=== PATIENT | male | born 1970 | race Caucasian/White ===

== ENCOUNTER 2019-01-06 19:29 | Inpatient (IN) | payer OTHER ==
[~2019-01-06] VITALS: Ht 180.3 cm; Wt 124.5 kg
[2019-01-06 20:14] LABS: BASO % 0.4 % (0.0-2.0); EOS % 0.2 % (0-4.0); GRAN # 7.1 (1.4-6.5); GRAN % 71.3 % (42.2-75.2); HEMATOCRIT 38.6 % (42.0-52.0); HEMOGLOBIN 11.5 g/dl (13.5-18.0); LYMPH # 1.9 (1.2-3.4); LYMPH % 19.3 % (20.0-51.0); MEAN CELL VOLUME 77 fl (80.0-100.0); MEAN CORPUSCULAR HEMOGLOBIN 23 pg (27.0-31.0); MEAN CORPUSCULAR HGB CONC 30 g/dl (33.0-37.0); MEAN PLATELET VOLUME 10.2 fl (7.4-10.4); MONO # 0.8 (0.1-0.6); MONO % 8.5 % (1.7-9.3); PLATELET COUNT 297 K/mm3 (130-400); RED BLOOD COUNT 5.03 M/mm3 (4.20-5.60); REDCELL DISTRIBUTION WIDTH-CV 19.3 % (11.5-14.5)
[2019-01-06 20:19] LABS: ALBUMIN 3.6 gm/dL (3.5-5.0); BILIRUBIN,TOTAL 0.8 mg/dL (0.0-1.0); CALCIUM 8.6 mg/dL (8.4-10.2); CREATININE, serum 1.14 (0.66-1.25); POTASSIUM 4.7 mmol/L (3.4-5.0); TOTAL PROTEIN 6.5 gm/dL (6.4-8.2)
[2019-01-06 20:23] LABS: INR 1.1 (0.8-3.0); PROTHROMBIN TIME 13.3 SECONDS (9.7-12.8)
[2019-01-06 20:33] LABS: TROPONIN-I 0.049 ng/mL (0.000-0.035)
[2019-01-06] MEDS ORDERED: NORVASC 10MG10 MG PO (22:39)
[2019-01-06] MEDS ORDERED: BENADRYL25 M2 PO (22:41)
[2019-01-06] MEDS ORDERED: LOTENSIN 1010 MG/TAB PO (22:41)
[2019-01-06] MEDS ORDERED: PAXIL 20MG20 MG PO (22:42)
[2019-01-06] MEDS ORDERED: KLONOPIN2 MG PO (22:42)
[2019-01-06] MEDS ORDERED: GLUCOPHAGE1000 MG PO (22:42)
--- NOTE | 2019-01-06 23:15 | NUR ---
Report received by Georgie Carroll RN in ED.
[2019-01-06 23:22] VITALS: BP 122/109; BP 125/82; PULSE 120; TEMP 97.8
--- NOTE | 2019-01-06 23:30 | NUR ---
Pt arrived to ICU01 accompanied by ED staff member X1, personal belongings and X1 visitor. Pt transfered from stretcher independently with a steady gait to bed, onto standing scale and then to recliner per pt request. Assessment completed. Pt has mild diaphoresis visible to upper chest and forehead, reports SOA although denies need for O2 at this time. Declines use of a urinal and reports preference to use the toilet.
[2019-01-06 23:33] VITALS: O2SAT 90
[2019-01-06 23:41] VITALS: O2SAT 94
[2019-01-06 23:43] VITALS: O2SAT 95
[2019-01-06 23:44] VITALS: O2SAT 88
[2019-01-07] VITALS (697 sets, daily range): BP systolic 86–163; BP diastolic 52–93; PULSE 93–123; TEMP 97.9–98.9; O2SAT 85–100
--- NOTE | 2019-01-07 01:40 | NUR ---
Aiden Christianson from [facility] called. Will fax over ED report information although wanted to verbalize times medications administered due to the way the times are getting cut off with forms printed. 1L NS bolus @ 0820, 325 EC Aspirin @ 0803, 130mg Lovenox @ 0913, 20mg IV Lasix @0912, 50mg PO Metoprolol Suc @ 0820, Cardizem push 32.075mg IV @ 0827 with Cardizem gtt started. Paperwork received shortly following conversation with staff member.
--- NOTE | 2019-01-07 02:25 | NUR ---
Due to pts stats staying <90% consistently for the last couple mins 3L O2 was applied via NC to sleeping pt. RT notified. Sats increased following application.
[2019-01-07 05:18] LABS: BASO # 0.1 (0.0-0.2); BASO % 0.5 % (0.0-2.0); EOS % 0.1 % (0-4.0); GRAN # 7.7 (1.4-6.5); HEMATOCRIT 40.4 % (42.0-52.0); HEMOGLOBIN 11.7 g/dl (13.5-18.0); LYMPH # 2.4 (1.2-3.4); LYMPH % 21.4 % (20.0-51.0); MEAN CELL VOLUME 79 fl (80.0-100.0); MEAN CORPUSCULAR HEMOGLOBIN 23 pg (27.0-31.0); MEAN CORPUSCULAR HGB CONC 29 g/dl (33.0-37.0); MEAN PLATELET VOLUME 10.3 fl (7.4-10.4); MONO # 0.8 (0.1-0.6); MONO % 7.6 % (1.7-9.3); PLATELET COUNT 314 K/mm3 (130-400); RED BLOOD COUNT 5.14 M/mm3 (4.20-5.60); REDCELL DISTRIBUTION WIDTH-CV 19.4 % (11.5-14.5); RETIC % 1.9 % (0.5-3.52)
[2019-01-07 05:31] LABS: CALCIUM 8.4 mg/dL (8.4-10.2); CREATININE, serum 1.17 (0.66-1.25); POTASSIUM 4.9 mmol/L (3.4-5.0)
[2019-01-07 05:40] LABS: IRON,SERUM 21 ug/dL (35-150)
[2019-01-07 05:45] LABS: TROPONIN-I 0.046 ng/mL (0.000-0.035)
[2019-01-07 05:49] LABS: TOTAL IRON BINDING CAPACITY 409 ug/dL (261-462)
[2019-01-07 05:59] LABS: TSH w REFLEX 1.9 uIU/mL (0.465-4.680)
[2019-01-07 06:14] LABS: FERRITIN 17 ng/mL (18-464)
--- NOTE | 2019-01-07 07:10 | NUR ---
Pts girlfriend called for an update. Was not able to provide 4 digit passcode so pt was approached and gave verbal okay to provide with an update. Questions asked and answered- BP has been WNL. Heart rate has been controlled although still in an irregular rhythm. Will plan on MARC with cardioversion to reset heart at bedside following cardiology assessment. Will be in after work around 2pm.
--- NOTE | 2019-01-07 07:20 | NUR ---
Bedside report provided to Tanna Fragoso RN. Pt up to the toilet and back to bed. Independent with ambulation in the room with refusal to use the urinal at bedside.
--- NOTE | 2019-01-07 07:23 | NUR ---
Bedside report recieved from XOCHILT Paulino. Patient ambulates to bathroom independently with steady gait noted. 2LO2 in place per NC. Peripheral IV uncomplicated and locked. Patient denies needs at this time. Care assumed.
--- NOTE | 2019-01-07 07:45 | NUR ---
Bedside ECHO completed at this time by technologist.
--- NOTE | 2019-01-07 08:22 | NUR ---
Dr. West rounds on patient at this time. Orders as entered CPOE.
--- NOTE | 2019-01-07 08:47 | NUR ---
Dr. Flynn notified of consult
--- NOTE | 2019-01-07 09:04 | NUR ---
Dr. Cheney called and message left to notify of consult secondary to positive occult stool, patient report of GIB at home, and hgb of 11.2. Call back number provided.
--- NOTE | 2019-01-07 09:09 | NUR ---
Dr. Flynn rounds at this time. Orders as entered CPOE.
--- NOTE | 2019-01-07 10:10 | NUR ---
Patient expresses baseline anxiety exacerbated by ICU stay. He questions whether he will be allowed to go home tonight and follow up from an outpatient status for furhter exams. Support is provided and he is encouraged to complete schedule lexiscan and discuss results of that and POC with MD following test. He is agreeable to this. Care ongoing.
--- NOTE | 2019-01-07 10:22 | NUR ---
Patient departs with nuclear med. costume technician for ordered lexiscan.
--- NOTE | 2019-01-07 11:11 | NUR ---
Initial visit; Patient thanked Rack Carrier for looking in on him and offering God's blessings. Patient seemed to appreciate Rack Carrier's encouragement.
--- NOTE | 2019-01-07 11:43 | NUR ---
Patient returns to ICU via WC following lexiscan. Care resumed.
--- NOTE | 2019-01-07 12:12 | NUR ---
Patient provided and reminded multiple times to void using provided urinal for accurate output. Continually forgets and so is provided hat in toilet.
--- NOTE | 2019-01-07 13:10 | NUR ---
Dr. Cheney rounds on patient at this time. VORB for EGD tomorrow with AA. Care ongoing.
--- NOTE | 2019-01-07 13:43 | NUR ---
AA paged and call back number provided regarding EGD 01/08/[phone].
--- NOTE | 2019-01-07 15:11 | NUR ---
SW met with the patient to discuss discharge plan. The patient lives in [place] with his girlfriend, Jaclyn. He reports independence with ADLs and does not use any DME. The patient's PCP is Dr. Brijesh Garcia and he receives his medications at the [facility] in [place]. He reports no difficulties obtaining his meds. The patient is self pay. SW consulted financial counselor, Holly. The patient does not have advanced directives, but he was interested in obtaining a form for DPOA-HC. PATRICA provided. The patient plans to return home with his girlfriend upon discharge. No additional needs at this time.
--- NOTE | 2019-01-07 19:00 | NUR ---
Bedside report received from Tanna Fragoso RN. Pt resting with eyes closed prone in bed. Personal belongings with in reach. Gown not attached although drapped over pts lower extremities.
--- NOTE | 2019-01-07 22:00 | NUR ---
Pt resting in bed with this nurse entered room to administer medications, complete assessment and discuss education CHF notebook and sign consent for procedure schedule for 01/08/19. Pt discussed stressors in personal life including kids, pt has 2 adopted kids and how pts exterior looks hard although there a soft heart.
[2019-01-08] VITALS (546 sets, daily range): BP systolic 86–109; BP diastolic 58–87; PULSE 96–120; TEMP 98.1–98.8; O2SAT 77–100
[2019-01-08 05:57] LABS: BASO % 0.4 % (0.0-2.0); EOS # 0.1 (0.0-0.7); EOS % 0.7 % (0-4.0); GRAN # 4.9 (1.4-6.5); GRAN % 68.5 % (42.2-75.2); HEMOGLOBIN 10.4 g/dl (13.5-18.0); LYMPH # 1.4 (1.2-3.4); LYMPH % 20.3 % (20.0-51.0); MEAN CELL VOLUME 78 fl (80.0-100.0); MEAN CORPUSCULAR HEMOGLOBIN 23 pg (27.0-31.0); MEAN CORPUSCULAR HGB CONC 29 g/dl (33.0-37.0); MEAN PLATELET VOLUME 10.2 fl (7.4-10.4); MONO # 0.7 (0.1-0.6); MONO % 9.7 % (1.7-9.3); PLATELET COUNT 255 K/mm3 (130-400); RED BLOOD COUNT 4.56 M/mm3 (4.20-5.60); REDCELL DISTRIBUTION WIDTH-CV 18.9 % (11.5-14.5)
--- NOTE | 2019-01-08 06:00 | NUR ---
Pt noted to have HR that was observed up into the 150's and when looked in upon pt was using the toilet. HR decreased to the 110's promptly following pt returning to bed. Pt has been encouraged to use the urinal although has voiced preference to use the toilet.
[2019-01-08 06:05] LABS: HEMATOCRIT 35.6 % (42.0-52.0)
[2019-01-08 06:06] LABS: CALCIUM 7.9 mg/dL (8.4-10.2); CREATININE, serum 1.1 (0.66-1.25); POTASSIUM 4.2 mmol/L (3.4-5.0)
--- NOTE | 2019-01-08 07:10 | NUR ---
Bedside report provided to Tanna Wilson RN. Pt resting in bed with eyes intermittently open.
--- NOTE | 2019-01-08 07:15 | NUR ---
Bedside report received from XOCHILT Paulino.
--- NOTE | 2019-01-08 08:30 | NUR ---
Assessment completed. Pt sleeping in bed, easily arousable. Denies any pain. HR Afib on monitor. Discussed plan of care r/t NPO for EGD procedure today. Pt verbalized understanding. Call light in reach.
--- NOTE | 2019-01-08 13:04 | NUR ---
Updated Sabina Coates RN of pt's status. Pt left unit via ICU bed to Endo procedure with XOCHILT Coates.
--- NOTE | 2019-01-08 13:45 | NUR ---
Report received from XOCHILT Coates. Pt arrived to ICU room 1 from Endo procedure via bed. Pt A/0x3. Denies any nausea or pain. Remains on Amiodarone gtt. HR Afib on monitor. Call light in reach.
--- NOTE | 2019-01-08 16:30 | NUR ---
Pt finished eating. Family at bedside. Updated on pt status r/t EGD results and Amiodarone gtt. Answered all questions to pt and pt's family satisfaction. Pt denies any pain. Pt HR remains Afib 100-120s with Amiodarone gtt.
--- NOTE | 2019-01-08 19:15 | NUR ---
Bedside report received from Tanna Fragoso RN. Pt sitting in bed with girlfriend in chair next to pt towards the door. Pt discussed difference between hospital Hr monitor vs phone hero and had noticed at a prior time HR was in the 60's then for a moment had displayed a rate in the 100's. Questions encouraged and answered when presented to staff.
--- NOTE | 2019-01-08 19:30 | NUR ---
bedside report given to XOCHILT Paulino
[2019-01-09] VITALS (493 sets, daily range): BP systolic 110–121; BP diastolic 76–97; PULSE 93–109; TEMP 98.2–98.5; O2SAT 76–100
--- NOTE | 2019-01-09 07:10 | NUR ---
Bedside report provided to Marlon LEMON.
--- NOTE | 2019-01-09 08:00 | NUR ---
Shift assessment complete at this time. Plan of care reviewed at bedside with patient. Additional time taken to address any other needs or concerns. Vitals stable at this time. Pt still remains in a-fib on amiodarone gtt. Denies pain or any other discomfort. Bed in low position, call light within reach, will continue to monitor.
--- NOTE | 2019-01-09 11:44 | NUR ---
Financial counselor, Uli, plans to meet with the patient today and complete a Medicaid hero. The patient had already applied for social security. SW to continue to follow.
--- NOTE | 2019-01-09 12:00 | NUR ---
Pt resting comfortably in bed. Denies pain or any other discomfort. Vitals stable at this time. HR more stable and not quite at tachycardic after stopping amiodarone and starting Pt on digoxin. Bed in low position, call light within reach. Will continue to monitor.
[2019-01-09] MEDS ORDERED: FERROUS SU325 MG/TAB PO (15:11)
[2019-01-09] MEDS ORDERED: LANOXIN 0.25M0.25 MG PO (15:12)
[2019-01-09] MEDS ORDERED: COREG 3.123.125 MG/T PO (15:12)
[2019-01-09] MEDS ORDERED: LASIX 20MG TABL20 MG PO (15:13)
[2019-01-09] MEDS ORDERED: TYLENOL 325MG325 MG PO (15:13)
[2019-01-09] MEDS ORDERED: PROTONIX 40MG T40 MG PO (15:14)
[2019-01-09] MEDS ORDERED: PRAVACHOL 20MG20 MG PO (15:15)
== END 2019-01-09 16:05 | disposition home or self-care (01) | DRG 308 ==
LOC: COL.ER 19:29 → ICU 21:56
PROVIDERS: Emergency Medicine; Internal Medicine Gastroenterology; Nurse Practitioner; Physician Assistant; ADMIT Internal Medicine
PROC: 0DB68ZX Excision of Stomach, Via Natural or Artificial Opening Endoscopic, Diagnostic (ICD-10-PCS; principal; 2019-01-08 13:30)
DX: I48.0 Paroxysmal atrial fibrillation (principal); K25.4 Chronic or unspecified gastric ulcer with hemorrhage; I50.20 Unspecified systolic (congestive) heart failure; J81.1 Chronic pulmonary edema; I11.0 Hypertensive heart disease with heart failure; E11.9 Type 2 diabetes mellitus without complications; D50.9 Iron deficiency anemia, unspecified; K52.9 Noninfective gastroenteritis and colitis, unspecified; I95.9 Hypotension, unspecified; I08.0 Rheumatic disorders of both mitral and aortic valves; F41.9 Anxiety disorder, unspecified; F32.9 Major depressive disorder, single episode, unspecified; G47.30 Sleep apnea, unspecified; R78.89 Finding of other specified substances, not normally found in blood; K25.7 Chronic gastric ulcer without hemorrhage or perforation; Z88.5 Allergy status to narcotic agent; Z79.84 Long term (current) use of oral hypoglycemic drugs
CPT/HCPCS: 99222; 99223-AI; 99233-AI; 99239; A4216; A9500; C9113; J0282; J0456; J0696; J1160; J1650; J1940; J2060; J2704; J2785; J7030; J7050; J7060; Q9967

== ENCOUNTER 2019-03-17 13:20 | Inpatient (IN) | payer MEDICAID ==
[~2019-03-17] VITALS: Ht 180.3 cm; Wt 127.3 kg
[~2019-03-17 13:20] MED LIST: BENADRYL25 M2 PO; COREG 3.123.125 MG/T PO; FERROUS SU325 MG/TAB PO; GLUCOPHAGE1000 MG PO; KLONOPIN2 MG PO; LANOXIN 0.25M0.25 MG PO; LASIX 20MG TABL20 MG PO; LOTENSIN 1010 MG/TAB PO; NORVASC 10MG10 MG PO; PAXIL 20MG20 MG PO; PRAVACHOL 20MG20 MG PO; PROTONIX 40MG T40 MG PO; TYLENOL 325MG325 MG PO
[2019-03-31] VITALS (7 sets, daily range): BP systolic 109–152; BP diastolic 74–125; PULSE 51–109; TEMP 98–98.9
[2019-03-31 08:31] LABS: BASO # 0.1 (0.0-0.2); BASO % 0.9 % (0.0-2.0); EOS # 0.3 (0.0-0.7); EOS % 4.5 % (0-4.0); GRAN % 45.8 % (42.2-75.2); HEMATOCRIT 43.5 % (42.0-52.0); HEMOGLOBIN 13.9 g/dl (13.5-18.0); LYMPH # 2.5 (1.2-3.4); LYMPH % 38.2 % (20.0-51.0); MEAN CELL VOLUME 84 fl (80.0-100.0); MEAN CORPUSCULAR HEMOGLOBIN 27 pg (27.0-31.0); MEAN CORPUSCULAR HGB CONC 32 g/dl (33.0-37.0); MEAN PLATELET VOLUME 9.8 fl (7.4-10.4); MONO # 0.7 (0.1-0.6); MONO % 10.4 % (1.7-9.3); PLATELET COUNT 203 K/mm3 (130-400); RED BLOOD COUNT 5.17 M/mm3 (4.20-5.60); REDCELL DISTRIBUTION WIDTH-CV 22.5 % (11.5-14.5)
[2019-03-31 08:39] LABS: ALBUMIN 4.2 gm/dL (3.5-5.0); BILIRUBIN,TOTAL 0.4 mg/dL (0.0-1.0); CREATININE, serum 0.95 (0.66-1.25); MAGNESIUM 1.7 mg/dL (1.6-2.3); POTASSIUM 3.9 mmol/L (3.4-5.0)
[2019-03-31 08:41] LABS: PROTHROMBIN TIME 48.6 SECONDS (9.7-12.8)
--- NOTE | 2019-03-31 09:19 | NUR ---
SW met with the patient to discuss discharge plan. The patient lives in [place] with his , Jaclyn Jiang (ph#[phone]). He states that they recently got . He reports independence with ADLs and does not have any DME. The patient's PCP is Dr. Louis Goins and he receives his medications at the [facility] in [place]. He reports no difficulties obtaining his meds. The patient does not have advanced directives and he was not interested in completing one at this time. The patient plans to return home with his upon discharge. No additional needs at this time.
[2019-03-31] MEDS ORDERED: COREG 6.256.25 MG/TA PO (09:41)
[2019-03-31] MEDS ORDERED: COUMADIN 5MG5 MG/TAB PO (09:44)
[2019-03-31] MEDS ORDERED: MULTI VITAMINS1 TAB PO (09:44)
--- NOTE | 2019-03-31 10:30 | NUR ---
Pt arrived to room 307, he is ambulatory. A/O x3. His breathing is even and unlabored on RA. Pt denies any pain. Occasional palpitations present, pt's HR irregular. New medication reviewed with patient as well as POC. 22G started to R hand. Tele leads in place. Pt has no needs at this time. Call light within reach. Will continue to monitor.
--- NOTE | 2019-03-31 18:38 | NUR ---
Pt had uneventful day, denied any concerns or pain. Continues to be in Afib. Pt resting in his room, has no needs at this time. Call light within reach.
[2019-04-01 03:55] VITALS: BP 97/81; PULSE 55; TEMP 98
[2019-04-01 07:47] LABS: BASO # 0.1 (0.0-0.2); BASO % 0.8 % (0.0-2.0); EOS # 0.3 (0.0-0.7); EOS % 5.2 % (0-4.0); GRAN % 47.8 % (42.2-75.2); HEMATOCRIT 45.5 % (42.0-52.0); HEMOGLOBIN 14.5 g/dl (13.5-18.0); LYMPH # 2.1 (1.2-3.4); LYMPH % 32.9 % (20.0-51.0); MEAN CELL VOLUME 85 fl (80.0-100.0); MEAN CORPUSCULAR HEMOGLOBIN 27 pg (27.0-31.0); MEAN CORPUSCULAR HGB CONC 32 g/dl (33.0-37.0); MEAN PLATELET VOLUME 10.9 fl (7.4-10.4); MONO # 0.8 (0.1-0.6); MONO % 13.1 % (1.7-9.3); PLATELET COUNT 214 K/mm3 (130-400); RED BLOOD COUNT 5.34 M/mm3 (4.20-5.60); REDCELL DISTRIBUTION WIDTH-CV 23.5 % (11.5-14.5)
[2019-04-01 07:48] LABS: INR 2.7 (0.8-3.0)
[2019-04-01 07:51] VITALS: BP 106/77; PULSE 61; TEMP 97.5
[2019-04-01 07:57] LABS: CALCIUM 8.9 mg/dL (8.4-10.2); CREATININE, serum 0.92 (0.66-1.25); POTASSIUM 3.9 mmol/L (3.4-5.0)
[2019-04-01 10:35] VITALS: BP 118/80; PULSE 63; TEMP 97.9
--- NOTE | 2019-04-01 12:06 | NUR ---
Initial visit; Patient thanked Inventory Coordinator for looking in on him and offering spiritual care.
[2019-04-01 16:23] VITALS: BP 112/68; PULSE 88; TEMP 98.9
--- NOTE | 2019-04-01 19:18 | NUR ---
PT HAD UNEVENTFUL DAY. NO C/O CHEST PAIN. PT REMAINS IN AFIB. TO HAVE CARDIOVERSION TOMORROW. NO ISSUUES OR CONCERNS VOICED THIS SHIFT.
[2019-04-01 20:03] VITALS: BP 116/80; PULSE 80; TEMP 98.4
[2019-04-02 00:18] VITALS: BP 110/70; PULSE 53; TEMP 98.8
[2019-04-02 04:19] VITALS: BP 118/85; PULSE 65; TEMP 98.8
[2019-04-02 06:17] LABS: BASO % 0.7 % (0.0-2.0); EOS # 0.3 (0.0-0.7); EOS % 5.5 % (0-4.0); GRAN # 2.9 (1.4-6.5); GRAN % 48.4 % (42.2-75.2); HEMATOCRIT 43.4 % (42.0-52.0); HEMOGLOBIN 13.7 g/dl (13.5-18.0); LYMPH # 2.1 (1.2-3.4); LYMPH % 34.6 % (20.0-51.0); MEAN CELL VOLUME 86 fl (80.0-100.0); MEAN CORPUSCULAR HEMOGLOBIN 27 pg (27.0-31.0); MEAN CORPUSCULAR HGB CONC 32 g/dl (33.0-37.0); MEAN PLATELET VOLUME 10.6 fl (7.4-10.4); MONO # 0.6 (0.1-0.6); MONO % 10.6 % (1.7-9.3); PLATELET COUNT 147 K/mm3 (130-400); RED BLOOD COUNT 5.05 M/mm3 (4.20-5.60)
[2019-04-02 06:21] LABS: CALCIUM 8.5 mg/dL (8.4-10.2); CREATININE, serum 0.91 (0.66-1.25); POTASSIUM 3.6 mmol/L (3.4-5.0)
[2019-04-02 08:30] VITALS: BP 124/76; PULSE 84; TEMP 98
--- NOTE | 2019-04-02 08:42 | NUR ---
Pt assessment complete and charted. Pt laying in bed resting, doesn't appear in distress, A&O. Pt denies chest pain, dizziness, SOB, N/V. Pt on room air. RH INT IV flushes w/ no complications. pt voices no concerns at this time. Awaiting possible cardioversion today. Call light within reach.
[2019-04-02 10:01] VITALS: BP 143/88; PULSE 85
--- NOTE | 2019-04-02 10:02 | NUR ---
PT HERE FOR ELECTIVE CARDIOVERSION AFTER SOTALOL LOAD. [facility] FOR SEDATION WITH [facility]ITOR [facility]EST[facility] POST PROCEDURE. SEE MERGE REPORT FOR INTRA/POST SEDATION ASSESSMENTS.
[2019-04-02] MEDS ORDERED: BETAPACE 80MG80 MG PO (10:20)
[2019-04-02] MEDS ORDERED: COREG 3.123.125 MG/T PO (10:27)
[2019-04-02 16:04] VITALS: BP 110/81; PULSE 77; TEMP 98.2
--- NOTE | 2019-04-02 17:02 | NUR ---
Pt had cardioversion this morning. Tolerated well, converted one time. pt VSS after procedure and stated he had no pain and the pressure and tightness he had felt prior was no longer there. pt tolerated PO well after procedure. Pt discharged. All discharge instructions discussed and reviewed. All questions answered. LWR INT discontinued w/ catheter tip intact and no complications. Escorted out by this nurse.
== END 2019-04-02 17:04 | disposition home or self-care (01) | DRG 309 ==
LOC: MEDICAL 03-31 07:53
PROVIDERS: Internal Medicine Cardiovascular Disease; ADMIT Internal Medicine Cardiovascular Disease
PROC: 5A2204Z Restoration of Cardiac Rhythm, Single (ICD-10-PCS; principal; 2019-04-02)
DX: I48.0 Paroxysmal atrial fibrillation (principal); I50.22 Chronic systolic (congestive) heart failure; I42.9 Cardiomyopathy, unspecified; I34.0 Nonrheumatic mitral (valve) insufficiency; I11.0 Hypertensive heart disease with heart failure; E78.5 Hyperlipidemia, unspecified; I25.10 Atherosclerotic heart disease of native coronary artery without angina pectoris; G47.33 Obstructive sleep apnea (adult) (pediatric); D64.9 Anemia, unspecified; I27.20 Pulmonary hypertension, unspecified; E11.9 Type 2 diabetes mellitus without complications; F32.9 Major depressive disorder, single episode, unspecified; F41.9 Anxiety disorder, unspecified; Z88.5 Allergy status to narcotic agent; Z79.84 Long term (current) use of oral hypoglycemic drugs
CPT/HCPCS: J2704; J3475

== ENCOUNTER 2019-04-09 08:59 | Day surgery (SDC) | payer MEDICAID ==
[~2019-04-09] VITALS: Ht 180.3 cm; Wt 124.2 kg
[~2019-04-09 08:59] MED LIST changes: +BETAPACE 80MG80 MG PO; +COREG 6.256.25 MG/TA PO; +COUMADIN 5MG5 MG/TAB PO; +MULTI VITAMINS1 TAB PO
[2019-04-09] MEDS ORDERED: COREG 6.256.25 MG/TA PO (09:11)
[2019-04-09] MEDS ORDERED: LASIX 20MG TABL20 MG PO (09:12)
[2019-04-09] MEDS ORDERED: PROTONIX 40MG T40 MG PO (09:13)
[2019-04-09] MEDS ORDERED: PRAVACHOL 20MG20 MG PO (09:14)
[2019-04-09] MEDS ORDERED: BETAPACE 120MG120 MG PO (09:14)
[2019-04-09 09:49] VITALS: BP 109/94; PULSE 57; TEMP 98.6
[2019-04-09 10:07] LABS: HEMOGLOBIN 13.1 g/dl (13.5-18.0); MEAN CELL VOLUME 88 fl (80.0-100.0); MEAN CORPUSCULAR HEMOGLOBIN 27 pg (27.0-31.0); MEAN CORPUSCULAR HGB CONC 31 g/dl (33.0-37.0); MEAN PLATELET VOLUME 9.8 fl (7.4-10.4); PLATELET COUNT 210 K/mm3 (130-400); REDCELL DISTRIBUTION WIDTH-CV 22.3 % (11.5-14.5)
[2019-04-09 10:14] LABS: INR 2.7 (0.8-3.0)
[2019-04-09 10:22] LABS: CALCIUM 8.5 mg/dL (8.4-10.2); CREATININE, serum 0.93 (0.66-1.25); POTASSIUM 3.9 mmol/L (3.4-5.0)
[2019-04-09 10:50] LABS: THYROID STIMULATING HORMONE 0.984 uIU/mL (0.465-4.680)
[2019-04-09] MEDS ORDERED: BETAPACE 80MG80 MG PO (11:26)
[2019-04-09 11:30] VITALS: BP 109/77; PULSE 66; TEMP 98.6
--- NOTE | 2019-04-09 11:30 | NUR ---
Pt resting in bed. Denies pain and needs at this time. HR 66 SR
[2019-04-09 11:45] VITALS: BP 121/73; PULSE 63; TEMP 98.6
[2019-04-09 12:00] VITALS: BP 110/80; PULSE 69; TEMP 98.6
[2019-04-09 12:15] VITALS: BP 109/77; PULSE 68; TEMP 98.6
[2019-04-09 12:43] VITALS: BP 158/82; PULSE 67; TEMP 98.6
--- NOTE | 2019-04-09 12:44 | NUR ---
INT discontinued intact. VSS. Post ECG complete.
--- NOTE | 2019-04-09 12:50 | NUR ---
Discharge instructions given. Transferred to private car by geoff
== END 2019-04-09 13:01 | disposition home or self-care (01) ==
LOC: COL.CAR 08:59
PROVIDERS: Internal Medicine Cardiovascular Disease
DX: I48.91 Unspecified atrial fibrillation (principal); I42.0 Dilated cardiomyopathy; E78.2 Mixed hyperlipidemia; I27.20 Pulmonary hypertension, unspecified; I11.0 Hypertensive heart disease with heart failure; I50.32 Chronic diastolic (congestive) heart failure; I34.0 Nonrheumatic mitral (valve) insufficiency; G47.33 Obstructive sleep apnea (adult) (pediatric); E11.9 Type 2 diabetes mellitus without complications; F41.9 Anxiety disorder, unspecified; F32.9 Major depressive disorder, single episode, unspecified; Z87.19 Personal history of other diseases of the digestive system; Z79.84 Long term (current) use of oral hypoglycemic drugs; Z79.01 Long term (current) use of anticoagulants; Z82.49 Family history of ischemic heart disease and other diseases of the circulatory system; Z82.3 Family history of stroke; Z88.6 Allergy status to analgesic agent; Z88.8 Allergy status to other drugs, medicaments and biological substances; Z88.4 Allergy status to anesthetic agent
CPT/HCPCS: J2704

== ENCOUNTER 2019-07-23 08:28 | Day surgery (SDC) | payer MEDICAID ==
[~2019-07-23] VITALS: Ht 180.3 cm; Wt 121.2 kg
[~2019-07-23 08:28] MED LIST changes: +BETAPACE 120MG120 MG PO
[2019-07-23 09:30] VITALS: BP 107/82; PULSE 59; TEMP 97.7
[2019-07-23] MEDS ORDERED: CARAFATE 1GM1 G PO (09:36)
[2019-07-23] MEDS ORDERED: ALDACTONE50 MG PO (09:37)
[2019-07-23] MEDS ORDERED: ELIQUIS 5MG PO (09:37)
[2019-07-23] MEDS ORDERED: TOPROL XL100 MG PO (09:38)
[2019-07-23] MEDS ORDERED: PACERONE200 MG PO (09:38)
[2019-07-23 11:45] VITALS: BP 96/75; PULSE 59; TEMP 97.9
--- NOTE | 2019-07-23 11:45 | NUR ---
Patient brought back to bay 5 via cart. Ambulated to chair without difficulty. Placed on monitors, vital signs stable. IV to left hand infusing. at bedside. Report recieved from PAULINE RN. Pt denies pain or nausea. Dr. Everett at bedside to discuss results. Pt requests soda and muffin. Will continue to monitor.
[2019-07-23 12:00] VITALS: BP 108/74; PULSE 61
--- NOTE | 2019-07-23 12:00 | NUR ---
Patient tolerating food and drink without difficulty. States he is feeling well. Vital signs stable. Will continue to monitor.
[2019-07-23 12:15] VITALS: BP 110/77; PULSE 60
--- NOTE | 2019-07-23 12:15 | NUR ---
Patient states he is ready to go home. IV pulled without difficulty. Discharge instructions reviewed with patient and . All questions answered. Pt to get dressed at this time.
--- NOTE | 2019-07-23 12:38 | NUR ---
Patient brought down to lobby via wheel chair. To be driven home by .
== END 2019-07-23 12:38 | disposition home or self-care (01) ==
LOC: SDCO 08:28
DX: K57.30 Diverticulosis of large intestine without perforation or abscess without bleeding (principal); K64.0 First degree hemorrhoids; K44.9 Diaphragmatic hernia without obstruction or gangrene; I48.91 Unspecified atrial fibrillation; M19.90 Unspecified osteoarthritis, unspecified site; F32.9 Major depressive disorder, single episode, unspecified; F41.0 Panic disorder [episodic paroxysmal anxiety]; R53.82 Chronic fatigue, unspecified; K29.80 Duodenitis without bleeding; K29.70 Gastritis, unspecified, without bleeding; I49.9 Cardiac arrhythmia, unspecified; I11.0 Hypertensive heart disease with heart failure; I50.9 Heart failure, unspecified; G47.33 Obstructive sleep apnea (adult) (pediatric); I27.20 Pulmonary hypertension, unspecified; J90 Pleural effusion, not elsewhere classified; J18.9 Pneumonia, unspecified organism; E11.9 Type 2 diabetes mellitus without complications; F41.9 Anxiety disorder, unspecified; E66.9 Obesity, unspecified; Z68.36 Body mass index [BMI] 36.0-36.9, adult; Z79.84 Long term (current) use of oral hypoglycemic drugs; Z95.0 Presence of cardiac pacemaker
CPT/HCPCS: J2370; J2704

== ENCOUNTER 2020-01-18 15:50 | Emergency (ER) | payer MEDICAID ==
[~2020-01-18] VITALS: Ht 180.3 cm; Wt 126.8 kg
[~2020-01-18 15:50] MED LIST changes: +ALDACTONE50 MG PO; +CARAFATE 1GM1 G PO; +ELIQUIS 5MG PO; +PACERONE200 MG PO; +TOPROL XL100 MG PO
[2020-01-18 16:35] VITALS: BP 152/106; TEMP 98.1
[2020-01-18 17:12] LABS: COLLECTION METHOD CLEAN CATCH
[2020-01-18 17:35] LABS: PH 6 (5-8); SQUAMOUS EPITHELIAL None Seen /hpf; URINE APPEARANCE Clear; URINE BACTERIA None Seen /hpf; URINE BILIRUBIN Negative (NEGATIVE); URINE BLOOD Negative (NEGATIVE); URINE COLOR Straw; URINE GLUCOSE Negative (NEGATIVE); URINE KETONE Negative (NEGATIVE); URINE LEUKOCYTE ESTERASE Negative (NEGATIVE); URINE NITRATE Negative (NEGATIVE); URINE PROTEIN(semi-quant) Negative (NEGATIVE); URINE RBC 0-2 /hpf; URINE UROBILINOGEN Negative (NEGATIVE)
[2020-01-18 17:45] LABS: BASO # 0.1 (0.0-0.2); BASO % 0.8 % (0.0-2.0); EOS # 0.2 (0.0-0.7); EOS % 2.3 % (0-4.0); GRAN # 6.1 (1.4-6.5); GRAN % 61.7 % (42.2-75.2); HEMOGLOBIN 16.2 g/dl (13.5-18.0); LYMPH # 2.5 (1.2-3.4); LYMPH % 25.3 % (20.0-51.0); MEAN CELL VOLUME 91 fl (80.0-100.0); MEAN CORPUSCULAR HEMOGLOBIN 30 pg (27.0-31.0); MEAN CORPUSCULAR HGB CONC 33 g/dl (33.0-37.0); MEAN PLATELET VOLUME 9.9 fl (7.4-10.4); MONO # 0.9 (0.1-0.6); MONO % 9.6 % (1.7-9.3); PLATELET COUNT 193 K/mm3 (130-400); RED BLOOD COUNT 5.39 M/mm3 (4.20-5.60); REDCELL DISTRIBUTION WIDTH-CV 13.8 % (11.5-14.5)
[2020-01-18 17:59] LABS: ALANINE AMINOTRANSFERASE 17 U/L (4-49); ALBUMIN 4.4 gm/dL (3.5-5.0); ALKALINE PHOSPHATASE 42 U/L (50-136); ANION GAP 10 mmol/L (7-16); AST,SGOT 23 U/L (15-37); BILIRUBIN,TOTAL 0.8 mg/dL (0.0-1.0); BLOOD UREA NITROGEN 4 mg/dL (9-20); CALCIUM 9.6 mg/dL (8.4-10.2); CARBON DIOXIDE 24 mmol/L (22-30); CHLORIDE 102 mmol/L (98-107); CREATININE, serum 0.88 (0.66-1.25); GLUCOSE 99 mg/dL (74-106); POTASSIUM 3.6 mmol/L (3.4-5.0); SODIUM 137 mmol/L (137-145); TOTAL PROTEIN 7.7 gm/dL (6.4-8.2)
[2020-01-18 18:00] LABS: C-REACTIVE PROTEIN < 0.5 mg/dL (0.0-0.9)
[2020-01-18] MEDS ORDERED: BACTRIM DS 8001 TAB PO (19:01)
[2020-01-18 19:11] VITALS: PULSE 86
== END 2020-01-18 19:11 | disposition home or self-care (01) ==
LOC: COL.ER 15:50
PROVIDERS: Emergency Medicine
DX: N41.9 Inflammatory disease of prostate, unspecified (principal); I11.0 Hypertensive heart disease with heart failure; I50.9 Heart failure, unspecified; E11.9 Type 2 diabetes mellitus without complications; I48.91 Unspecified atrial fibrillation; Z87.442 Personal history of urinary calculi; Z79.01 Long term (current) use of anticoagulants; Z79.84 Long term (current) use of oral hypoglycemic drugs; Z98.890 Other specified postprocedural states
CPT/HCPCS: J7030

== ENCOUNTER → 2020-07-19 | Outpatient (CLI) | payer MEDICAID ==
[~2020-07-19] MED LIST changes: +BACTRIM DS 8001 TAB PO
== END ==
LOC: COL.RAD 07:43
DX: M51.36 Other intervertebral disc degeneration, lumbar region (principal); M48.061 Spinal stenosis, lumbar region without neurogenic claudication; M48.07 Spinal stenosis, lumbosacral region; M51.27 Other intervertebral disc displacement, lumbosacral region

== ENCOUNTER 2021-07-13 09:33 | Day surgery (SDC) | payer MEDICARE ==
[~2021-07-13] VITALS: Ht 180.3 cm; Wt 124.0 kg
[2021-07-13] VITALS (9 sets, daily range): BP systolic 93–129; BP diastolic 65–89; PULSE 60–62; TEMP 98.3
[2021-07-13] MEDS ORDERED: K-TAB20 PO (10:33)
[2021-07-13] MEDS ORDERED: PAXIL 20MG20 MG PO (10:34)
[2021-07-13] MEDS ORDERED: ENTRESTO 97 MG1 EACH PO (10:35)
[2021-07-13] MEDS ORDERED: FARXIGA5 PO (10:35)
--- NOTE | 2021-07-13 12:08 | NUR ---
SEE MERGE FOR ALL MEDICATION ADMINISTRATION TIMES, INTRA AND POST SEDATION ASSESSMENTS
[2021-07-13 12:29] LABS: INR 1.1 (0.8-3.0); PROTHROMBIN TIME 12.5 SECONDS (9.7-12.8)
[2021-07-13 12:37] LABS: CALCIUM 9.3 mg/dL (8.4-10.2); CREATININE, serum 1.04 mg/dL (0.72-1.25); POTASSIUM 4.1 mmol/L (3.5-4.5)
[2021-07-13 12:44] LABS: HEMATOCRIT 46.1 % (42.0-52.0); HEMOGLOBIN 15.8 g/dl (13.5-18.0); MEAN CELL VOLUME 90 fl (80.0-100.0); MEAN CORPUSCULAR HEMOGLOBIN 31 pg (27.0-31.0); MEAN CORPUSCULAR HGB CONC 34 g/dl (33.0-37.0); MEAN PLATELET VOLUME 9.2 fl (7.4-10.4); PLATELET COUNT 177 K/mm3 (130-400); RED BLOOD COUNT 5.12 M/mm3 (4.20-5.60); REDCELL DISTRIBUTION WIDTH-CV 14.6 % (11.5-14.5)
--- NOTE | 2021-07-13 13:20 | NUR ---
Report from Mirna LEMON. Transferred from [employer] by bed. Alert and oriented, denies pain and needs at this time . right groin CD&I soft to palpation and palpable pedal pulses noted. Right Tband with 12 cc air CD&I, good pulses and cap refill < 3 secs noted. VSS. Spouse bedside.
--- NOTE | 2021-07-13 15:56 | NUR ---
12 cc air released from right Tband and dressing applied. INT discontinued intact.
--- NOTE | 2021-07-13 16:20 | NUR ---
Discharge instructions given. Transferred to private car by geoff
== END 2021-07-13 16:20 | disposition home or self-care (01) ==
LOC: COL.CAR 09:33
PROVIDERS: Internal Medicine Cardiovascular Disease
DX: R07.89 Other chest pain (principal); I42.9 Cardiomyopathy, unspecified; I47.1 Supraventricular tachycardia; I50.9 Heart failure, unspecified; Z79.899 Other long term (current) drug therapy; Z79.01 Long term (current) use of anticoagulants
CPT/HCPCS: C1769; C1894; J1644; J2250; J3010